=== PATIENT | female | born 2000 | race Caucasian/White ===

== ENCOUNTER 2019-11-04 13:14 | Observation (INO) | payer OTHER, SELFPAY ==
[2019-11-04] VITALS (32 sets, daily range): BP systolic 100–125; BP diastolic 46–73; PULSE 106–139; RESP 16; TEMP 36.7; O2SAT 96–100; BMI 32.5
--- NOTE | 2019-11-04 13:15 | OBADM ---
This patient, Shayna Gu, admitted to the OB room [facility] for observation. Patient/family oriented to hospital policies and general routines including ID bracelet, bed and alarms, visiting hours, pain management, procedures, bathroom and other care routines, personal items, smoking policy, room service/diet, and visiting hours. Patient/Family are encouraged to report perceived risks to care and to ask questions if they do not understand what they are told or what they should do.
[2019-11-04] MEDS: TERBUTALINE SULFATE 1 MG/ML VIAL 0.25 MG SUB-Q (13:49)
[2019-11-04] MEDS: LACTATED RINGERS 1,000 ML 75 ML IV CONT (13:54)
[2019-11-04] MEDS: AMPICILLIN 2 GM/NS 100 ML 2 GM/100 ML BAG IVPB (13:55)
[2019-11-04] MEDS: BETAMETHASONE SOD PHOS/ACETATE 30 MG/5 ML VIAL 12 MG IM (13:55)
[2019-11-04] MEDS: MAGNESIUM SULF 20GM/WATER500ML 500 ML 300 MG IV CONT (14:00)
--- NOTE | 2019-11-04 14:02 | PC.NURSE ---
1400--Magnesium sulfate 6gm bolus given out of 500 ml bag.
[2019-11-04] MEDS: ERYTHROMYCIN LACTOBIONATE INJ 250 MG in SODIUM CHLORIDE 0.9% IV 100 ML 200 MG IVPB (14:41)
--- NOTE | 2019-11-04 14:50 | PM.IMHP ---
H&P: HPI History of Present Illness Chief complaint: contractions,leaking Narrative: Shayna Gu is a 19 year old female 011 at 273 gestation presents with ruptured membranes approximately 2 hours prior to admission also with significant uterine contractions after that. Has had no vaginal bleeding no trauma no other significant issues prior to her rupture of membranes. records are on the chart no significant abnormalities other than gonorrhea in 1st trimester which was treated and negative on the culture. Review of Systems Review of Systems: All systems reviewed & are unremarkable except as noted in HPI and below Meds Home Medications and Allergies Allergies Allergy/AdvReac Type Severity Reaction Status Date / Time No Known Allergies Allergy Verified 04/08/15 11:43 Vital Signs Vital Signs - 24 hr 11/04/19 13:30 11/04/19 13:58 11/04/19 14:00 Temperature 36.7 C Pulse Rate 106 H 129 H Respiratory Rate 16 Blood Pressure 125/73 121/62 Pulse Oximetry 99 11/04/19 14:03 11/04/19 14:08 11/04/19 14:13 Temperature Pulse Rate Respiratory Rate Blood Pressure Pulse Oximetry 98 97 98 11/04/19 14:15 11/04/19 14:18 11/04/19 14:23 Temperature Pulse Rate 138 H Respiratory Rate Blood Pressure 111/47 L Pulse Oximetry 97 98 11/04/19 14:28 11/04/19 14:30 11/04/19 14:33 Temperature Pulse Rate 125 H Respiratory Rate Blood Pressure 100/52 L Pulse Oximetry 99 98 11/04/19 14:38 11/04/19 14:43 11/04/19 14:45 Temperature Pulse Rate 129 H Respiratory Rate Blood Pressure 109/54 L Pulse Oximetry 97 100 11/04/19 14:48 Temperature Pulse Rate Respiratory Rate Blood Pressure Pulse Oximetry 96 Exam Const: General: no acute distress and uncomfortable ( After magnesium sulfate given) Resp: Auscultation: clear to auscultation bilaterally Cardio: Rate: regular rate Rhythm: regular rhythm GI: GI Palp: Yes Soft to palpation Other: uterus nontender to palpation. Ultrasound does reveal vertex presentation. : Other: Cervix is 2cm dilated 50% effaced with vertex palpated. Assessment and Plan Assessment and plan (1) 27 weeks gestation of : Code(s): Z3A.27 - 27 weeks gestation of Status: Acute (2) Premature rupture of membranes (PROM) with labor delayed by therapy: Code(s): O42.90 - Premature rupture of membranes, unspecified as to length of time between rupture and onset of labor, unspecified weeks of gestation Status: Acute (3) labor: Code(s): O60.00 - labor without delivery, unspecified trimester Status: Acute Additional Plan 1. Magnesium sulfate tocolysis / neuro protection. 2. Ampicillin and erythromycin antibiotic prophylaxis. 3. cortical steroids are given. 4. Transfer to [facility] will be initiated.
--- NOTE | 2019-11-04 15:24 | PC.NURSE ---
Discussed with pharmacy giving Erythromycin and Procardia together. Instructed to monitor.
[2019-11-04] MEDS: NIFEdipine 10 MG CAPSULE PO (15:31)
--- NOTE | 2019-11-04 16:02 | ECG_ITS ---
Measurements Intervals [place] Rate: 150 P: 60 NV: 130 QRS: 75 QRSD: 87 T: 10 QT: 294 QTc: 464 Interpretive Statements SINUS TACHYCARDIA NONSPECIFIC T-WAVE ABNORMALITY- INFERIOR LEADS BASELINE ARTIFACT- I, III, AVR, AVL ABNORMAL ECG Electronically Signed On 11-05-2019 6:53:09 CDT by Obie Mcneal D.O.
== END 2019-11-04 16:30 | disposition short-term general hospital (02) ==
PROVIDERS: Admitting Provider Obstetrics & Gynecology; PCP Pediatrics; Visit Provider Obstetrics & Gynecology
DX: O42.912 Preterm premature rupture of membranes, unspecified as to length of time between rupture and onset of labor, second trimester (principal); O60.02 Preterm labor without delivery, second trimester; Z3A.27 27 weeks gestation of pregnancy
CPT/HCPCS: 93005; 96365; 96366; 96367; 96368; 96372; A9270; G0378; G0379; J0290; J0702; J1364; J3105; J3475; J7120

== ENCOUNTER 2022-04-12 13:23 | Emergency (ER) | payer OTHER, SELFPAY ==
--- NOTE | 2022-04-12 13:28 | ED.SKABFB ---
HPI - Skin/Abscess/Foreign Bdy General Chief complaint: Skin/Abscess/Foreign Body Stated complaint: Rash On Back Time Seen by Provider: 04/12/22 13:31 Source: patient, RN notes reviewed and old records reviewed Mode of arrival: ambulatory Limitations: no limitations History of Present Illness HPI narrative: 21-year-old female presents to the [facility] with a rash on her back. Patient states that she noticed it yesterday. Related Data Allergies Allergy/AdvReac Type Severity Reaction Status Date / Time No Known Allergies Allergy Verified 04/12/22 13:30 Review of Systems Review of Systems: All systems reviewed & are unremarkable except as noted in HPI and below Constitutional: Constitutional: Reports no additional constitutional complaints, Denies chills and Denies fever(s) Eyes: Eyes: Reports no additional eye complaints ENT: Reports system reviewed and no additional complaints, except as documented Cardiovascular: Cardiovascular: Reports no additional cardiovascular complaints Respiratory: Respiratory: Reports no additional respiratory complaints Gastrointestinal: Gastrointestinal: Reports no additional gastrointestinal complaints Musculoskeletal: Musculoskeletal: Reports no additional musculoskeletal complaints Integumentary/Breasts: Skin/Breast: Reports as per HPI Neurologic: Reports system reviewed and no additional complaints, except as documented Psychiatric: Psychiatric: Reports no additional psychiatric complaints Allergic/Immunologic: Allergic/Immunologic: Reports no additional allergic/immunologic complaints PMFSH Comments At the time of my signature, I reviewed and agree with the nursing past medical, surgical, social, and family history. There is no relevant family history pertinent to the patient complaint. Exam Const: General: healthy appearing, no acute distress, alert and well nourished Nutritional Appearance: well nourished Orientation/consciousness: patient oriented x3 Limitations: no limitations HENMT: Head: normal to inspection Ears: external ears normal Eyes: General: appearance normal, both eyes and all related structures Pupils: Equal, round and reactive pupils present Neck: Neck: normal visual inspection, no lymphadenopathy and no meningeal signs Chest: Chest palpation & inspection: normal inspection of the chest Resp: Effort & Inspection: normal respiratory effort and no use of accessory muscles Auscultation: clear to auscultation bilaterally, no crackles, no rales, no rhonchi and no wheezes Cardio: Rate: regular rate Rhythm: regular rhythm Back/Spine/Pelvis: Cervical Spine: normal cervical lordosis Thoracic/Lumbar Spine: thoracic and lumbar spine normal to inspection Skin: General skin exam: normal color Rashes: no rashes Wounds: no wounds Full body images: 1. Red warm area, not raised, no fluctuance, no blisters noted. No other redness or rash noted. Neuro: General: patient oriented x3, moves all extremities, no meningeal signs and no focal motor deficits Cranial nerves: Yes Equal, round and reactive pupils present Speech: normal speech Gait exam (Neuro): Normal gait present Extrem: General: normal to inspection, full ROM and capillary refill normal Psych: Appearance: grossly normal and well kempt Mental Status: mental status grossly normal Affect: normal affect Attitude: cooperative Thought content: Yes Normal thought content present Course Course Emergency Course: Discharge instructions reviewed with patient, as well as provided in writing per nursing staff. The instructions also include specific and strict return/GO TO THE ER as well as f/u information. All questions have been answered, and the patient deny any further questions with discharge and discharge plan. Some parts of this dictation were generated by voice recognition software and may contain typographical and/or grammatical inaccuracies. Level of Care: Express Care Visit Vital Signs
[2022-04-12 13:31] VITALS: BP 116/59; PULSE 92; RESP 18; TEMP 36.2; O2SAT 100
== END 2022-04-12 13:45 | disposition home or self-care (01) ==
PROVIDERS: Emergency Provider Nurse Practitioner; PCP Physician Assistant
DX: S20.461A Insect bite (nonvenomous) of right back wall of thorax, initial encounter (principal); W57.XXXA Bitten or stung by nonvenomous insect and other nonvenomous arthropods, initial encounter
CPT/HCPCS: 99213; G0463

== ENCOUNTER 2022-05-15 17:34 | Emergency (ER) | payer OTHER, SELFPAY | END 2022-05-15 19:46 | disposition left against medical advice (07) | LOC: EXPCOLL 17:37 | PROVIDERS: Emergency Provider Nurse Practitioner Family; PCP Nurse Practitioner Family | DX: Z53.21 Procedure and treatment not carried out due to patient leaving prior to being seen by health care provider (principal) | CPT/HCPCS: 99199 ==

== ENCOUNTER 2022-05-16 09:45 | Emergency (ER) | payer OTHER, SELFPAY ==
[2022-05-16 10:19] VITALS: BP 122/65; PULSE 79; RESP 16; TEMP 36; O2SAT 100
--- NOTE | 2022-05-16 10:20 | PC.NURSE ---
in br to obtain clean and dirty catch urine.
--- NOTE | 2022-05-16 10:31 | ED.GENADULT ---
HPI - General Adult General Chief complaint: Urogenital-Female Stated complaint: std testing Time Seen by Provider: 05/16/22 10:31 Source: patient Mode of arrival: ambulatory Limitations: no limitations History of Present Illness HPI narrative: 21-year-old female patient presents to the [facility] with complaints of white to yellow discharge for the past 3 days with some vaginal irritation. Patient requesting STD testing today. Patient states that her last menstrual cycle was approximately April 04. Patient states last had sex right before her menstrual cycle. Patient states that she only has vaginal sex with men but denies using protection at that time. Patient denies any pain with urination. Denies any nausea, vomiting or diarrhea. Denies any fevers, body aches or chills. Related Data Home Medications Medication Instructions Recorded Confirmed fluoxetine 20 mg capsule 20 mg PO DAILY 05/15/22 05/16/22 Allergies Allergy/AdvReac Type Severity Reaction Status Date / Time No Known Allergies Allergy Verified 05/16/22 10:22 Review of Systems Review of Systems: CONSTITUTIONAL: Denies fever, chills, or sweats. EYES: Denies visual changes, redness, or discharge. ENT: Denies rhinorrhea, congestion, sore throat, or otalgia. CARDIOVASCULAR: Denies chest pain, palpitations, or edema. RESPIRATORY: Denies cough or dyspnea. GASTROINTESTINAL: Denies abdominal pain, nausea, vomiting, or diarrhea. GENITOURINARY: Denies dysuria or hematuria. Positive white to yellow discharge for the past 3 days vaginal irritation SKIN: Denies rash or itching. MUSCULOSKELETAL: Denies back pain, joint pain, or myalgia. NEUROLOGIC: Denies headache, numbness, or weakness. PSYCHIATRIC: Denies anxiety or depression. [facility] Past Medical History Medical History (Updated 05/16/22 @ 11:32 by ORLIN Wu) 27 weeks gestation of Premature rupture of membranes (PROM) with labor delayed by therapy labor Comments At the time of my signature I agree with nursing past medical history, surgical, social, and family history. There is no relevant family history pertinent to the presenting complaint. Exam Narrative: GENERAL: Well-appearing, well-nourished, and in no acute distress. HEAD: Normocephalic, atraumatic. EYES: PERRLA and EOMI. ENT: Nares clear, no rhinorrhea or epistaxis. Mucous membranes moist. NECK: Supple. No lymphadenopathy CHEST: Clear to auscultation. No respiratory distress. HEART: Regular rate and rhythm. No murmur heard. Normal peripheral pulses. ABDOMEN: Soft, nontender, nondistended, normal active bowel sounds. : Normal external female genitalia. OS is closed. No adnexal fullness or TTP. No CVA tenderness to percussion. On pelvic exam copious amounts of watery yellow discharge was noted with an obvious strong odor. Sample was taken and sent to lab for evaluation for chlamydia, gonorrhea, Trichomonas and bacterial vaginosis. EXTREMITIES: Normal range of motion. No edema. SKIN: Warm, dry, no rash. NEURO: No focal deficits. Alert and oriented x3. Course Course Level of Care: Express Care Visit Reevaluation(s) Reevaluation #1: Discussed with patient that we will go ahead and treat her today for gonorrhea, chlamydia, Trichomonas and bacterial vaginosis. Discussed with patient that I will also give her fluconazole to take after the antibiotics are done to help prevent yeast infection. Discussed with patient that we will call her with the results this is a common. Date: 05/16/22 Time: 11:33 Vital Signs Vital signs: Vital Signs Temperature 36.0 C L 05/16/22 10:19 Pulse Rate 79 05/16/22 10:19 Respiratory Rate 16 05/16/22 10:19 Blood Pressure 122/65 05/16/22 10:19 Pulse Oximetry 100 05/16/22 10:19 Oxygen Delivery Room Air 05/16/22 10:19 Temperature 36.0 C L 05/16/22 10:19 Pulse Rate 79 05/16/22 10:19 Respiratory Rate 16 05/16/22 10:19 Blood Pressure 122/65 05/16/22 10:1
[2022-05-16] MEDS: cefTRIAXone 500 MG, LIDOCAINE HCL 1% LOCAL INJ 1 ML IM (11:41)
== END 2022-05-16 12:04 | disposition home or self-care (01) ==
PROVIDERS: Emergency Provider Nurse Practitioner Family
DX: Z20.2 Contact with and (suspected) exposure to infections with a predominantly sexual mode of transmission (principal)
CPT/HCPCS: 81003; 81025; 87070; 87491; 87591; 87661; 96372; 99214; G0463; J0696

== ENCOUNTER 2022-05-31 12:24 | Emergency (ER) | payer OTHER, SELFPAY ==
--- NOTE | ~2022-05-31 | XR_ITS ---
EXAM: XR abdomen/kub 1V DATE: 05/31/2022 15:27 HISTORY: constipation . COMPARISON: None. FINDINGS: Clear lung bases. Normal bowel gas pattern. No organomegaly. Pelvic phleboliths. Regional bones and soft tissues normal for age. IMPRESSION: No radiographic evidence of obstruction or ileus. Reviewed, dictated and finalized at location K. [employer]
[2022-05-31 12:27] VITALS: BP 125/60; PULSE 94; RESP 18; TEMP 36.3; O2SAT 100
[2022-05-31 15:18] VITALS: BP 111/68; PULSE 74; RESP 14; O2SAT 100
--- NOTE | 2022-05-31 15:54 | ED.GENADULT ---
HPI - General Adult General Chief complaint: Unspecified Stated complaint: constipation, mucus stools Time Seen by Provider: 05/31/22 15:06 History of Present Illness HPI narrative: 21-year-old female with history of constipation presenting the emergency department for evaluation of mucus in stools. Patient states she was severely constipated a few days ago and ultimately had to digitally disimpact herself on . Patient states since then she has been passing soft mucousy stools. Patient states that she does still have some abdominal cramping. Patient had been taking MiraLAX and stool softeners but states after passing the stool on she stopped. Related Data Home Medications Medication Instructions Recorded Confirmed fluoxetine 20 mg capsule 20 mg PO DAILY 05/15/22 05/16/22 Allergies Allergy/AdvReac Type Severity Reaction Status Date / Time No Known Allergies Allergy Verified 05/31/22 15:20 Review of Systems Review of Systems: CONSTITUTIONAL: Denies fever, chills, or sweats. EYES: Denies visual changes, redness, or discharge. ENT: Denies rhinorrhea, congestion, sore throat, or otalgia. CARDIOVASCULAR: Denies chest pain, palpitations, or edema. RESPIRATORY: Denies cough or dyspnea. GASTROINTESTINAL: See HPI GENITOURINARY: Denies dysuria or hematuria. SKIN: Denies rash or itching. MUSCULOSKELETAL: Denies back pain, joint pain, or myalgia. NEUROLOGIC: Denies headache, numbness, or weakness. PSYCHIATRIC: Denies anxiety or depression. PMFSH Past Medical History Medical History (Updated 05/31/22 @ 16:01 by Nagi Cain MD) 27 weeks gestation of Premature rupture of membranes (PROM) with labor delayed by therapy labor Exam Narrative: APPEARANCE: Well appearing, no pain, no distress, well-nourished. HEAD: normocephalic, atraumatic. EYES: PERRLA/EOMI, conjunctivae clear. NOSE: Normal no drainage EARS:TMS clear with good light reflex. THROAT: Pharynx clear, no exudate. NECK: Supple. No adenopathy, no masses. RESPIRATORY: Airway patent, respirations nonlabored. Clear to auscultation bilaterally, no rales, rhonchi, wheezing. CARDIOVASCULAR: Regular rate and rhythm without murmurs rubs or gallops. ABDOMINAL: Soft, nontender, nondistended, normal bowel sounds MUSCULOSKELETAL: Moves all extremities. Strength/ROM intact, No edema, No calf tenderness. NEURO: Alert. Cranial nerves II through XII intact. Grossly intact SKIN: Warm, dry. Normal Color Course Course Emergency Course: Patient was updated on the results of the x-ray and plan for treatment of her constipation. Patient had a soft nontender abdomen. All questions concerns were addressed. Vital Signs Vital signs: Vital Signs Temperature 97.4 F L 05/31/22 12:27 Pulse Rate 94 05/31/22 12:27 Respiratory Rate 18 05/31/22 12:27 Blood Pressure 125/60 05/31/22 12:27 Pulse Oximetry 100 05/31/22 12:27 Oxygen Delivery Room Air 05/31/22 12:27 Temperature 97.4 F L 05/31/22 12:27 Pulse Rate 74 05/31/22 15:18 Respiratory Rate 14 05/31/22 15:18 Blood Pressure 111/68 05/31/22 15:18 Pulse Oximetry 100 05/31/22 15:18 Oxygen Delivery Room Air 05/31/22 12:27 Medical Decision Making Vital Signs Vital Signs: Vital Signs Temperature 97.4 F L 05/31/22 12:27 Pulse Rate 94 05/31/22 12:27 Respiratory Rate 18 05/31/22 12:27 Blood Pressure 125/60 05/31/22 12:27 Pulse Oximetry 100 05/31/22 12:27 Oxygen Delivery Room Air 05/31/22 12:27 Temperature 97.4 F L 05/31/22 12:27 Pulse Rate 74 05/31/22 15:18 Respiratory Rate 14 05/31/22 15:18 Blood Pressure 111/68 05/31/22 15:18 Pulse Oximetry 100 05/31/22 15:18 Oxygen Delivery Room Air 05/31/22 12:27 Lab Data Lab results reviewed: Yes I reviewed the patient's lab results. Labs: UCG Bedside Result Negative Reference Range: Negative Imag
== END 2022-05-31 16:16 | disposition home or self-care (01) ==
PROVIDERS: Emergency Provider Emergency Medicine; PCP Physician Assistant
DX: K59.00 Constipation, unspecified (principal)
CPT/HCPCS: 74018; 81025; 99283

== ENCOUNTER 2022-07-28 12:51 | Emergency (ER) | payer OTHER, SELFPAY ==
--- NOTE | 2022-07-28 12:58 | ED.URI ---
HPI - URI/Sore Throat General Chief Complaint: Upper Respiratory Infection Stated Complaint: Sinus/Sore Throat Time Seen by Provider: 07/28/22 12:58 Source: patient Mode of arrival: ambulatory Limitations: no limitations History of Present Illness HPI Narrative: 22-year-old female presents with complaint of sore throat, nasal congestion, headaches, fatigue starting yesterday. Afebrile. Denies nausea vomiting diarrhea. No cough or shortness of breath. Patient took DayQuil NyQuil cold and flu yesterday to treat her symptoms. All systems reviewed and negative except as noted above. Related Data Home Medications Medication Instructions Recorded Confirmed No Home Medications 07/28/22 07/28/22 Allergies Allergy/AdvReac Type Severity Reaction Status Date / Time No Known Allergies Allergy Verified 07/28/22 13:03 Review of Systems Review of Systems: CONSTITUTIONAL: Denies fever, chills, or sweats. EYES: Denies visual changes, redness, or discharge. ENT: Reports rhinorrhea, congestion, sore throat. Denies otalgia. CARDIOVASCULAR: Denies chest pain, palpitations, or edema. RESPIRATORY: Denies cough or dyspnea. GASTROINTESTINAL: Denies abdominal pain, nausea, vomiting, or diarrhea. GENITOURINARY: Denies dysuria or hematuria. SKIN: Denies rash or itching. MUSCULOSKELETAL: Denies back pain, joint pain, or myalgia. NEUROLOGIC: Denies headache, numbness, or weakness. PSYCHIATRIC: Denies anxiety or depression. All other systems reviewed are negative, except as documented in HPI. [facility] Past Medical History Medical History (Updated 07/28/22 @ 13:37 by Katty Jordan NP) 27 weeks gestation of Premature rupture of membranes (PROM) with labor delayed by therapy labor Course Course Level of Care: Express Care Visit Vital Signs Vital signs: Vital Signs Temperature 36.8 C 07/28/22 12:59 Pulse Rate 103 H 07/28/22 12:59 Respiratory Rate 16 07/28/22 12:59 Blood Pressure 116/71 07/28/22 12:59 Pulse Oximetry 100 07/28/22 12:59 Oxygen Delivery Room Air 07/28/22 12:59 Temperature 36.8 C 07/28/22 12:59 Pulse Rate 103 H 07/28/22 12:59 Respiratory Rate 16 07/28/22 12:59 Blood Pressure 116/71 07/28/22 12:59 Pulse Oximetry 100 07/28/22 12:59 Oxygen Delivery Room Air 07/28/22 12:59 reviewed MDM - URI/Sore Throat MDM Narrative Medical decision making narrative: Patient is aware of diagnosis, understands and agrees to treatment plan. Anticipatory guidance given. Patient agrees to follow-up as directed and is aware of reasons to seek care at the emergency department. Portions of this record may have been created with voice recognition software Differential Diagnosis Differential diagnosis: Likely upper respiratory infection, sinusitis, viral infection and pharyngitis Lab Data Labs: Strep Screen Presumptive Negative *(Reference Range: Negative)* Discharge Plan Discharge Clinical Impression: Acute viral sinusitis Patient Disposition: Home, Self-Care Condition: Stable Instructions: Sinusitis (ED) Additional Instructions: Your COVID and strep test were negative today. Your symptoms are viral and may last 1-2 weeks. Taking [id number] medication to treat her symptoms such as DayQuil NyQuil cold and Sinus. May also use a nasal spray such as Flonase or Nasacort. Place a cool-mist humidifier in bedroom where you sleep. Take ibuprofen every 6-8 hours as needed for pain and fever. Drink plenty of fluids and rest. Follow-up with your primary care physician if symptoms not improving. Prescriptions: No Action No Home Medications Follow-up/Referrals: Rona,CARLTON Li [Primary Care Provider] - Stand Alone Forms: Work/School Release IP Time of Disposition: 13:36
[2022-07-28 12:59] VITALS: BP 116/71; PULSE 103; RESP 16; TEMP 36.8; O2SAT 100
== END 2022-07-28 13:42 | disposition home or self-care (01) ==
PROVIDERS: Emergency Provider Nurse Practitioner Family; PCP Physician Assistant
DX: J01.90 Acute sinusitis, unspecified (principal); Z20.822 Contact with and (suspected) exposure to COVID-19
CPT/HCPCS: 87081; 87426; 87880; 99213; C9803; G0463

== ENCOUNTER 2022-08-24 19:02 | Emergency (ER) | payer OTHER, SELFPAY ==
[2022-08-24 19:10] VITALS: BP 116/67; PULSE 85; RESP 16; TEMP 36.8; O2SAT 100
--- NOTE | 2022-08-24 19:30 | ED.GENADULT ---
HPI - General Adult General Chief complaint: Urogenital-Female Stated complaint: STD Source: patient Mode of arrival: ambulatory Limitations: no limitations History of Present Illness HPI narrative: Patient presents for evaluation of vaginal discharge for the last week. Discharge is yellow and clear in appearance. She denies any fever, chills, nausea, vomiting, abdominal pain, low back pain, and urinary symptoms. She had a new male sexual partner a few days prior to symptom onset. He recently had comprehensive STD testing and did test positive for Trichomonas. She indicates all his other testing was negative. They did use condoms but it broke during intercourse. She has a history of gonorrhea several years ago. She is not on contraception. LMP 08/06/22. Related Data Allergies Allergy/AdvReac Type Severity Reaction Status Date / Time No Known Allergies Allergy Verified 07/28/22 13:03 Review of Systems Review of Systems: CONSTITUTIONAL: Denies fever, chills, or sweats. EYES: Denies visual changes, redness, or discharge. ENT: Denies rhinorrhea, congestion, sore throat, or otalgia. CARDIOVASCULAR: Denies chest pain, palpitations, or edema. RESPIRATORY: Denies cough or dyspnea. GASTROINTESTINAL: Denies abdominal pain, nausea, vomiting, or diarrhea. GENITOURINARY: Denies dysuria or hematuria. Reports clear yellow vaginal discharge SKIN: Denies rash or itching. MUSCULOSKELETAL: Denies back pain, joint pain, or myalgia. NEUROLOGIC: Denies headache, numbness, dizziness, or weakness. PSYCHIATRIC: Denies anxiety or depression. [facility] Past Medical History Medical History (Updated 08/24/22 @ 19:34 by ORLIN Zhou, [place]) 27 weeks gestation of Premature rupture of membranes (PROM) with labor delayed by therapy labor Surgical History Surgical History No pertinent past surgical history Family History Family History Mother Acute myocardial infarction Family history non-contributory Social History Social History Alcohol intake: current Alcohol use details: social Substance use: current Substance use type: marijuana Gender identity (if verbalized by the patient): Female Sexual Orientation (if Verbalized by the Patient): Straight or Heterosexual Spiritual care concerns: No Exam Narrative: GENERAL: Well-appearing, well-nourished, and in no acute distress. HEAD: Normocephalic, atraumatic. EYES: PERRLA and EOMI. ENT: Nares clear, no rhinorrhea or epistaxis. Mucous membranes moist. Oropharynx without tonsillar hypertrophy exudate or other lesions. Bilateral TMs pearly foster nonbulging NECK: Supple. No adenopathy or masses. No carotid bruits or JVD CHEST: Clear to auscultation. No respiratory distress. No wheezes rales or rhonchi HEART: Regular rate and rhythm. No murmur heard. Normal peripheral pulses. ABDOMEN: Soft, nontender, nondistended, normal active bowel sounds. EXTREMITIES: Normal range of motion. No edema. SKIN: Warm, dry, no rash. NEURO: No focal deficits. Alert and oriented x3. PSYCH: Normal mood and affect. Course Course Emergency Course: This is a 22-year-old female who presented for evaluation of vaginal discharge following a trichomonas exposure. I did offer to treat her for gonorrhea and chlamydia which she declined. She states that her partner tested negative for both. We only had 250mg flagyl. I offered to provide her with 2 g dose here. She declined would like a call down with 500 mg tablets so she can take fever pills. Encouraged comprehensive STD examination. Abstain from sexual activity. She verbalized understanding she may need to return for further treatment if additional testing is positive. Go to ER for intractable pain. Patient in agreement with plan of care
== END 2022-08-24 19:52 | disposition home or self-care (01) ==
PROVIDERS: Emergency Provider Nurse Practitioner; PCP Physician Assistant
DX: A54.9 Gonococcal infection, unspecified (principal)
CPT/HCPCS: 81003; 81025; 87086; 87491; 87591; 87661; 99214; G0463

== ENCOUNTER 2022-08-30 16:19 | Emergency (ER) | payer OTHER, SELFPAY ==
[2022-08-30 16:28] VITALS: BP 116/68; PULSE 90; RESP 16; TEMP 36.6; O2SAT 100
--- NOTE | 2022-08-30 16:28 | ED.GENADULT ---
HPI - General Adult General Chief complaint: Urogenital-Female Stated complaint: Vaginal Problems Time Seen by Provider: 08/30/22 16:29 Source: patient, RN notes reviewed and old records reviewed Mode of arrival: ambulatory Limitations: no limitations History of Present Illness HPI narrative: 22-year-old [facility] after being contacted that she had a positive gonorrhea swab. Patient denies any new symptoms. Related Data Allergies Allergy/AdvReac Type Severity Reaction Status Date / Time No Known Allergies Allergy Verified 08/30/22 16:29 Review of Systems Review of Systems: All systems reviewed & are unremarkable except as noted in HPI and below Constitutional: Constitutional: Reports no additional constitutional complaints Eyes: Eyes: Reports no additional eye complaints ENT: Reports system reviewed and no additional complaints, except as documented Cardiovascular: Cardiovascular: Reports no additional cardiovascular complaints, Denies chest pain and Denies dyspnea Respiratory: Respiratory: Reports no additional respiratory complaints, Denies chest congestion, Denies cough and Denies dyspnea Gastrointestinal: Gastrointestinal: Reports no additional gastrointestinal complaints, Denies abdominal pain, Denies nausea and Denies vomiting Musculoskeletal: Musculoskeletal: Reports no additional musculoskeletal complaints Integumentary/Breasts: Skin/Breast: Reports system reviewed and no additional complaints, except as docu Neurologic: Reports system reviewed and no additional complaints, except as documented Psychiatric: Psychiatric: Reports no additional psychiatric complaints Allergic/Immunologic: Allergic/Immunologic: Reports no additional allergic/immunologic complaints [facility] Past Medical History Medical History 27 weeks gestation of Premature rupture of membranes (PROM) with labor delayed by therapy labor Surgical History Surgical History No pertinent past surgical history Family History Family History Mother Acute myocardial infarction Family history non-contributory Social History Social History Alcohol intake: current Alcohol use details: social Substance use: current Substance use type: marijuana Gender identity (if verbalized by the patient): Female Sexual Orientation (if Verbalized by the Patient): Straight or Heterosexual Spiritual care concerns: No Comments At the time of my signature, I reviewed and agree with the nursing past medical, surgical, social, and family history. There is no relevant family history pertinent to the patient complaint. Exam Const: General: cooperative, healthy appearing, comfortable, no acute distress, well developed, alert and well nourished Nutritional Appearance: well nourished Orientation/consciousness: patient oriented x3 Limitations: no limitations HENMT: Head: normal to inspection Ears: hearing grossly normal bilaterally and external ears normal Face/Nose/Sinus: Normal external nose present, Normal nares present, Normal nasal mucous membranes and turbinates present and normal facial exam Face and sinus: normal facial exam Mouth: Yes Normal oral and palatal mucosa present, Yes lip normal and Yes moist mucous membranes Eyes: General: appearance normal, both eyes and all related structures Alignment and Position: alignment normal Periorbital: periorbital findings normal Conjunctivae: conjunctivae normal Pupils: Equal, round and reactive pupils present EOM: EOMs intact bilaterally Neck: Neck: normal visual inspection, full ROM, no lymphadenopathy and no meningeal signs Chest: Chest palpation & inspection: normal inspection of the chest Resp: Effort & Inspection: normal respir
[2022-08-30] MEDS: cefTRIAXone 500 MG, LIDOCAINE HCL 1% LOCAL INJ 1 ML IM (16:38)
== END 2022-08-30 16:55 | disposition home or self-care (01) ==
PROVIDERS: Emergency Provider Nurse Practitioner; PCP Physician Assistant
DX: A54.9 Gonococcal infection, unspecified (principal)
CPT/HCPCS: 96372; 99213; G0463; J0696

== ENCOUNTER 2022-11-03 16:17 | Emergency (ER) | payer OTHER, SELFPAY ==
--- NOTE | 2022-11-03 16:20 | ED.DENTAL ---
HPI - Dental/Oral General Stated complaint: Pain in tooth; swollen Time Seen by Provider: 11/03/22 16:20 Source: patient Mode of arrival: ambulatory Limitations: no limitations History of Present Illness HPI Narrative: Shanya is a 22-year-old female patient presenting to the clinic today with complaints dental pain to the left lower back molar. She reports no fever or chills. Nose some white discharge coming from the tooth when she pushed on it this morning. Related Data Home Medications Medication Instructions Recorded Confirmed No Home Medications 11/03/22 11/03/22 Allergies Allergy/AdvReac Type Severity Reaction Status Date / Time No Known Allergies Allergy Verified 08/30/22 16:29 Review of Systems Review of Systems: Pertinent positives per HPI. Patient denies any fever, chills, rash, headache, visual changes, dizziness, cough, runny nose, sore throat, shortness of breath, chest pain, palpitations, nausea, vomiting, diarrhea, constipation, abdominal pain, or any urinary issues. PMFSH Past Medical History Medical History 27 weeks gestation of Premature rupture of membranes (PROM) with labor delayed by therapy labor Surgical History Surgical History No pertinent past surgical history Family History Family History Mother Acute myocardial infarction Family history non-contributory Social History Social History Alcohol intake: current Alcohol use details: social Substance use: current Substance use type: marijuana Gender identity (if verbalized by the patient): Female Sexual Orientation (if Verbalized by the Patient): Straight or Heterosexual Spiritual care concerns: No Comments At the time of my signature, I reviewed and agree with the nursing past medical, surgical, social, and family history. There is no relevant family history pertinent to the patient complaint. Exam Narrative: General: Well-developed, well nourished, in no apparent distress Head: Normocephalic, atraumatic Eyes: Pupils equally round and reactive to light bilaterally, EOM intact, sclera and conjunctive clear, no discharge, lids normal Ears: TMs intact and clear, ear canals clear, no drainage, grossly hearing normal. Nose: Nares patent, no discharge, no inflammation, no sinus tenderness. Mouth: Oropharynx without lesions or masses, poor dentition, MMM. Pain to palpation over the left lower 3rd molar. Surrounding gingiva inflamed. Tenderness to palpation over the left lower jaw without fluctuance Neck: Supple, trachea midline, no enlargement of anterior or posterior cervical nodes, no thyroid masses or goiter palpable. Cardio: Regular rate and rhythm, s1 and s2 normal, no murmur appreciated. Resp: Clear to auscultation bilaterally anteriorly and posteriorly, no rhonchi, rales, wheezing or rubs Course Course Emergency Course: Portions of this record may have been created with voice recognition software. Level of Care: Express Care Visit Vital Signs Vital signs: Vital signs reviewed MDM - Dental/Oral MDM Narrative Medical decision making narrative: At the time of visit patient is resting comfortably on the exam table. I suspect patient has a dental infection. Prescription for amoxicillin was sent to the pharmacy and supportive measures were discussed with the patient she voiced understanding of discharge instructions agrees to treatment plan. Differential Diagnosis Differential diagnosis: Likely gingival abscess, dental caries, toothache, dental abscess and fracture of tooth Discharge Plan Discharge Clinical Impression: Dental infection Patient Disposition: Home, Self-Care Condition: Stable Instructions: Antibiotic
[2022-11-03 16:24] VITALS: BP 121/70; PULSE 69; RESP 16; TEMP 36.4; O2SAT 100
== END 2022-11-03 16:33 | disposition home or self-care (01) ==
PROVIDERS: Emergency Provider Nurse Practitioner Family; PCP Physician Assistant
DX: K04.7 Periapical abscess without sinus (principal); F12.90 Cannabis use, unspecified, uncomplicated
CPT/HCPCS: 99213; G0463

== ENCOUNTER 2023-07-16 16:01 | Emergency (ER) | payer MEDICAID, SELFPAY ==
[2023-07-16 16:12] VITALS: BP 114/67; PULSE 90; RESP 20; TEMP 36.7; O2SAT 99
[2023-07-16 16:17] VITALS: BP 114/67; PULSE 90; RESP 20; TEMP 36.7; O2SAT 99
--- NOTE | 2023-07-16 16:21 | ED.FEMALEGU ---
HPI - Female Genitourinary General Chief complaint: Urogenital-Female Stated complaint: Vaginal Pain Time Seen by Provider: 07/16/23 16:22 Source: patient Mode of arrival: ambulatory Limitations: no limitations History of Present Illness HPI Narrative: 23-year-old female reports clear vaginal discharge, more than usual for past 2-3 days. States today she noticed small speck of green in clear discharge. No vaginal soreness, itching or irritation. Last menstrual period approximately 2 weeks ago. No concern for . Would like STI testing. Has been with her partner for 7-8 months. All systems reviewed and negative except as noted above. Related Data Home Medications Medication Instructions Recorded Confirmed No Home Medications 11/03/22 07/16/23 Allergies Allergy/AdvReac Type Severity Reaction Status Date / Time No Known Allergies Allergy Verified 08/30/22 16:29 Review of Systems Review of Systems: CONSTITUTIONAL: Denies fever, chills, or sweats. EYES: Denies visual changes, redness, or discharge. ENT: Denies rhinorrhea, congestion, sore throat, or otalgia. CARDIOVASCULAR: Denies chest pain, palpitations, or edema. RESPIRATORY: Denies cough or dyspnea. GASTROINTESTINAL: Denies abdominal pain, nausea, vomiting, or diarrhea. GENITOURINARY: Denies dysuria or hematuria. Reports clear vaginal discharge. SKIN: Denies rash or itching. MUSCULOSKELETAL: Denies back pain, joint pain, or myalgia. NEUROLOGIC: Denies headache, numbness, or weakness. PSYCHIATRIC: Denies anxiety or depression. All other systems reviewed are negative, except as documented in HPI. [facility] Past Medical History Medical History 27 weeks gestation of Premature rupture of membranes (PROM) with labor delayed by therapy labor Surgical History Surgical History No pertinent past surgical history Family History Family History Mother Acute myocardial infarction Family history non-contributory Social History Social History Alcohol intake: current Alcohol use details: social Substance use: current Substance use type: marijuana Gender identity (if verbalized by the patient): Female Sexual Orientation (if Verbalized by the Patient): Straight or Heterosexual Spiritual care concerns: No Comments At time of signature, agree with nursing past medical, surgical, social and family history. There is no relevant family history pertinent to the presenting complaint. Exam Narrative: GENERAL: This is a well-nourished, well-developed patient, in no apparent distress. HEAD: normocephalic, atraumatic. EYES: PERRL. Sclera clear/white. Vision is grossly intact. EARS: External ears normal NOSE: External nose normal NECK: Neck supple, non-tender without lymphadenopathy, masses or thyromegaly. CARDIOVASCULAR: Regular rate and rhythm without murmurs, gallops, or rubs. RESPIRATORY: Clear to auscultation. Breath sounds equal bilaterally. No wheezes, rales, or rhonchi. SKIN: warm, Dry, intact with no suspicious lesions or rash, good texture and turgor. NEURO: awake, alert, and oriented to person, place and time. There were no obvious focal neurologic abnormalities. EXTREMITIES: No joint tenderness, effusion, or edema noted. GENITOURINARY: pelvic exam deferred Course Course Level of Care: Express Care Visit Vital Signs Vital signs: Vital Signs Temperature 36.7 C 07/16/23 16:12 Pulse Rate 90 07/16/23 16:12 Respiratory Rate 20 07/16/23 16:12 Blood Pressure 114/67 07/16/23 16:12 Pulse Oximetry 99 07/16/23 16:12 Oxygen Delivery Room Air 07/16/23 16:12 Temperature 36.7 C 07/16/23 16:17 Pulse Rate 90 07/16/23 16:17 Respirator
[2023-07-16 19:44] LABS: Trichomonas Vag PCR NOT DETECTED (NOT DETECTE)
[2023-07-16 20:05] LABS: Chlamydia trachomatis NOT DETECTED (NOT DETECTE); Neisseria gonorrhoeae PCR NOT DETECTED (NOT DETECTE)
== END 2023-07-16 16:34 | disposition home or self-care (01) ==
PROVIDERS: Emergency Provider Nurse Practitioner Family
DX: N89.8 Other specified noninflammatory disorders of vagina (principal); F12.90 Cannabis use, unspecified, uncomplicated; Z20.2 Contact with and (suspected) exposure to infections with a predominantly sexual mode of transmission
CPT/HCPCS: 87491; 87591; 87661; 99214; G0463